=== PATIENT | male | born 1955 | race Caucasian/White ===

== ENCOUNTER 2020-09-30 15:48 | Emergency (ER) | payer OTHER ==
[~2020-09-30 15:48] MED LIST: ASPIRIN CHEWABL81 MG PO; AUGMENTIN 875-1 EACH PO; CO Q-10150 MG PO; CRESTOR20 MG PO; CYMBALTA60 MG PO; FINASTERIDE5 MG PO; FLOMAX 0.4 MG0.4 MG PO; FLORANEX GRANU1 EACH PO; IBUPROFEN600 MG PO; LISINOPRIL20 MG PO; NORVASC5 MG PO; NOVOLIN 70100 UNIT/1 SQ; OMNICEF 300 MG300 MG PO; PHENERGAN 12.12.5 M1 PO; PLAVIX 75 MG TA75 MG PO; PROTONIX 40 MG40 M1 PO; TOPROL XL 50 MG50 MG PO; TYLENOL 500 MG500 MG PO; VITAMIN D3125 MCG PO; XANAX0.5 MG PO; ZITHROMAX250 MG PO; ZYRTEC10 MG PO
[2020-09-30] MEDS ORDERED: VIBRAMYCIN 100100 MG PO (18:59)
== END 2020-09-30 19:10 | disposition home or self-care (01) ==
LOC: ER1 15:48
DX: S06.0X0A Concussion without loss of consciousness, initial encounter (principal); E11.9 Type 2 diabetes mellitus without complications; W19.XXXA Unspecified fall, initial encounter
CPT/HCPCS: 70450; 70486; 72125; 99283